=== PATIENT | female | born 1990 | race African-American/Black ===

== ENCOUNTER 2020-03-08 04:19 | Emergency (ER) | payer OTHER ==
[2020-03-08 04:26] VITALS: BP 123/84; PULSE 95; TEMP 98.3; BMI 38.4
[2020-03-08] MEDS ORDERED: ONDANSETRON *ODT* 4 MG TABLET SL ONE (04:26)
[2020-03-08] MEDS ORDERED: LIDOCAINE VISCOUS 2% ORAL/TOP 20 ML UNIT-DOSE CUP MM ONE (04:27)
[2020-03-08] MEDS ORDERED: FAMOTIDINE 20 MG TABLET PO ONE (04:27)
[2020-03-08] MEDS ORDERED: MAG HYDROX/AL HYDROX/SIMETH 30 ML UNIT-DOSE CUP PO ONE (04:27)
[2020-03-08] MEDS ORDERED: FAMOTIDINE 20 MG TABLET ONE (04:29)
[2020-03-08] MEDS ORDERED: MAG HYDROX/AL HYDROX/SIMETH 30 ML UNIT-DOSE CUP ONE (04:29)
[2020-03-08] MEDS ORDERED: ONDANSETRON *ODT* 4 MG TABLET ONE (04:29)
--- NOTE | 2020-03-08 04:33 | PDOC ---
History of Present Illness - General Chief Complaint: Nausea/Vomiting Stated Complaint: "I have this crampy feeling in my upper stomach History Source: Patient Exam Limitations: No Limitations - History of Present Illness Initial Comments: 03/08/20 04:28 29-year female no past medical history here today complaining of epigastric pain nausea and vomiting States her symptoms started 3 days ago initially with one episode of vomiting the day following she had a second episode but yesterday she had several episodes of vomit pain is described epigastric region radiating up to her chest she describes it as a gassy feeling or burning feeling no fevers no chills no sick contacts denies any changes to her stool no urinary complaints states she is not currently has never had similar symptoms in the past. Did take Lexis-[place] with no relief is currently on a diet and does protein shakes in the a.m. but felt her symptoms may have started after eating some greasy tacos Past History - Medical History Allergies/Adverse Reactions: Allergies Allergy/AdvReac Type Severity Reaction Status Date / Time No Known Allergies Allergy Verified 03/08/20 04:27 Home Medications: Ambulatory Orders NK [No Known Home Medication] 09/03/14 COPD: No HTN: Yes (during last ) - Reproductive History (#): 2 Para: 1 - Immunization History Immunization Up to Date: Yes - Psycho-Social/Smoking History Smoking History: Never smoked - Substance Abuse Hx (Audit-C & DAST Scrn) How often the patient has a drink containing alcohol: Never Score: In Men: 4 or > Positive; In Women: 3 or > Positive: 0 Screen Result (Pos requires Nsg. Audit-10AR): Negative In the last yr the pt used illegal drug/Rx for NonMed reason: No Score: Yes response is considered Positive: 0 Screen Result (Positive result requires Nsg. DAST-10): Negative Review of Systems - Review of Systems Constitutional: No: Chills HEENTM: No: Eye Pain Respiratory: No: Cough, Shortness of Breath Cardiac (ROS): No: Chest Pain ABD/GI: Yes: Nausea, Vomiting, Indigestion. No: Poor Appetite, Abdominal cramp ing : No: Burning, Dysuria, Discharge Musculoskeletal: No: Back Pain, Joint Pain Neurological: No: Headache, Numbness All Other Systems: Reviewed and Negative *Physical Exam - Vital Signs Last Vital Signs Temp Pulse Resp BP Pulse Ox 98.3 F 95 H 16 123/84 100 03/08/20 04:22 03/08/20 04:22 03/08/20 04:22 03/08/20 04:22 03/08/20 04:22 - Physical Exam 03/08/20 04:31 Awake alert no acute distress lungs are clear bilaterally heart is regular murmurs rubs or gallops abdomen is soft relatively nontender except minimal tenderness in the epigastric region no rebound no guarding negative Garcia sign negative CVA tenderness. Extremities are warm well perfused skin is warm and dry patient is awake alert and oriented x3 ED Treatment Course - LABORATORY CBC & Chemistry Diagram: 03/08/20 04:55 03/08/20 04:55 Medical Decision Making - Medical Decision Making 03/08/20 04:32 29-year-old female here with epigastric pain nausea vomiting x3 days differential includes cholelithiasis reflux viral gastritis plan treat with antacid and antiemetics. Will perform a focused ED ultrasound of the right upper quadrant urine . Pending results will consider lab work and IV hydration 03/08/20 04:48 focused ED ruq, normal gallbladder, no stones. no wall thickening, no pericholecysitic fluid. CBD normal 2.8 mm, ant gallbladder wall 2.9 mm. impression; normal gallbladder plan basic labs cbc cmp lipase ua. reassess. 03/08/20 04:51 ucg negative 03/08/20 06:11 Patient reports on further questioning that she has recently had an endoscopy 1 month ago as a work-up for her future gastric bypass surgery. States that there was no hiatal hernia no ulcers and was essentially normal. She saw a GI doctor named Dr. Anne CBC is unremarkable electrolytes are normal except the potassium is not reported due to severe hemolyzed this of the specimen. The liver enzyme was mildly elevated also secondary to hemolysis. Lipase is normal UA is pending and UCG is negative. ua is contaminated wtih 20 epithelial cells, small blood and 28 wbc. small luekocyte esterase. pt no urinary sxs, therefore not treated. Trial of p.o. 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 Your urine test is negative and your urinalysis negative for infection. You should follow-up with your glue machine operator dr Anne at [facility] for any further GI upset. Return for any future vomiting fevers worsening pain or any concerns you may have you should also follow-up with your primary care doctor - Post Discharge Activity
[2020-03-08] MEDS ORDERED: LIDOCAINE VISCOUS 2% ORAL/TOP 20 ML UNIT-DOSE CUP ONE (04:34)
[2020-03-08] MEDS ORDERED: SODIUM CHLORIDE 0.9% 1000 ML INFUS.BAG IV ONE (04:53)
[2020-03-08 05:35] LABS: EOS % 1.1 % (0-4.5); HEMATOCRIT 41.8 % (32.4-45.2); HEMOGLOBIN 13.6 GM/dL (10.7-15.3); LYMPH % 33.9 % (8-40); MCH 30.4 pg (25.7-33.7); MCHC 32.4 g/dl (32.0-36.0); MEAN CELL VOLUME 93.9 fl (80-96); MEAN PLT VOLUME 8.9 fl (7.5-11.1); MONO % 7.6 % (3.8-10.2); NEUT % 56.4 % (42.8-82.8); PLATELET COUNT 268 K/MM3 (134-434); RBC 4.45 M/mm3 (3.60-5.2); RDW 14.6 % (11.6-15.6); WHITE BLOOD COUNT 7.8 K/mm3 (4.0-10.0)
[2020-03-08 06:03] LABS: ALBUMIN 3.8 g/dl (3.4-5.0); BILIRUBIN,TOTAL 0.4 mg/dL (0.2-1); BLOOD UREA NITROGEN 11.1 mg/dL (7-18); CALCIUM 8.9 mg/dL (8.5-10.1); CREATININE 0.9 mg/dL (0.55-1.3); TOT PROT 7.6 g/dl (6.4-8.2)
[2020-03-08 06:18] LABS: URINE APPEARANCE CLEAR; URINE COLOR YELLOW
[2020-03-08 06:19] LABS: PH,URINE 6.5 (5.0-8.0); URINE BILIRUBIN NEGATIVE (NEGATIVE); URINE GLUCOSE (UA) NEGATIVE (NEGATIVE); URINE KETONE NEGATIVE (NEGATIVE); URINE LEUK ESTERASE TRACE (NEGATIVE); URINE NITRITE NEGATIVE (NEGATIVE); URINE PROTEIN NEGATIVE (NEGATIVE)
[2020-03-08 06:20] LABS: EPI CELLS 22.9 /uL (0-25.1); URINE BACTERIA 176.8 /uL (0-1359); URINE RBC 1.9 /uL (0-23.9); URINE WBC 28.2 /uL (0-25.8)
== END 2020-03-08 06:26 | disposition home or self-care (01) ==
LOC: FER 04:19
DX: K29.70 Gastritis, unspecified, without bleeding (principal)
CPT/HCPCS: 36415; 76705-TC; 80053; 81003; 81025; 83690; 85025; 99285-25; Q0162

== ENCOUNTER 2020-09-14 21:15 | Emergency (ER) | payer OTHER ==
[2020-09-14 21:27] VITALS: BP 119/87; PULSE 88; TEMP 98.8; BMI 38.2
== END 2020-09-14 22:15 | disposition home or self-care (01) ==
LOC: FER 21:15
DX: L02.214 Cutaneous abscess of groin (principal)
CPT/HCPCS: 99282-25

== ENCOUNTER 2021-11-10 13:35 | Emergency (ER) | payer OTHER ==
[2021-11-10 13:52] VITALS: BP 118/84; PULSE 70; TEMP 98.6; BMI 22.8
[2021-11-10] MEDS ORDERED: FAMOTIDINE 20 MG TABLET PO ONE (13:57)
[2021-11-10] MEDS ORDERED: LIDOCAINE VISCOUS 2% ORAL/TOP 15 ML UNIT-DOSE CUP MM ONE (13:57)
[2021-11-10] MEDS ORDERED: MAG HYDROX/AL HYDROX/SIMETH 30 ML UNIT-DOSE CUP PO ONE (13:57)
[2021-11-10] MEDS ORDERED: FAMOTIDINE 20 MG TABLET ONE (13:58)
[2021-11-10] MEDS ORDERED: MAG HYDROX/AL HYDROX/SIMETH 30 ML UNIT-DOSE CUP ONE (13:59)
[2021-11-10] MEDS ORDERED: LIDOCAINE VISCOUS 2% ORAL/TOP 15 ML UNIT-DOSE CUP ONE (13:59)
[2021-11-10 14:20] LABS: HCG,QUALITATIVE URINE Negative
== END 2021-11-10 14:55 | disposition home or self-care (01) ==
LOC: FER 13:35
DX: K29.00 Acute gastritis without bleeding (principal)
CPT/HCPCS: 76705-TC; 81003; 84703; 87077; 87086; 99284-25

== ENCOUNTER 2022-03-12 08:02 | Emergency (ER) | payer OTHER ==
[2022-03-12 08:13] VITALS: BP 118/81; PULSE 78; RESP 20; TEMP 98.7; BMI 23.8
[2022-03-12] MEDS ORDERED: KETOROLAC TROMETHAMINE 30 MG/1 ML VIAL IM ONE (08:15)
[2022-03-12] MEDS ORDERED: ACETAMINOPHEN 325 MG TABLET (FP) PO ONE (08:15)
[2022-03-12] MEDS ORDERED: ACETAMINOPHEN 325 MG TABLET (FP) ONE (08:23)
[2022-03-12] MEDS ORDERED: KETOROLAC TROMETHAMINE 15 MG/ML VIAL ONE (08:23)
== END 2022-03-12 08:32 | disposition home or self-care (01) ==
LOC: FER 08:02
PROC: 3E023GC Introduction of Other Therapeutic Substance into Muscle, Percutaneous Approach (ICD-10-PCS; principal; 2022-03-12)
DX: S09.90XA Unspecified injury of head, initial encounter (principal); W22.8XXA Striking against or struck by other objects, initial encounter
CPT/HCPCS: 99284-25